=== PATIENT | male | born 1995 | race Caucasian/White ===

== ENCOUNTER 2017-08-06 23:38 | Emergency (ER) | payer MEDICAID ==
[~2017-08-06] VITALS: Ht 172.7 cm; Wt 65.8 kg
[~2017-08-06 23:38] MED LIST: IBUP-81 PO
[2017-08-06 23:41] VITALS: BP 140/67
[2017-08-07] MEDS ORDERED: TETRACAINE HCL/PF 0.5% OPTH 4 ML BTL ONE (00:06)
[2017-08-07] MEDS ORDERED: FLUORESCEIN OPTH STRIP 0.6 MG ONE (00:07)
[2017-08-07] MEDS: FLUORESCEIN OPTH STRIP 0.6 MG OP ONE (00:21)
[2017-08-07] MEDS: TETRACAINE HCL/PF 0.5% OPTH 4 ML BTL OP ONE (00:21)
[2017-08-07 00:29] VITALS: BP 140/67
== END 2017-08-07 00:29 | disposition home or self-care (01) ==
LOC: MED 23:38
DX: H10.9 Unspecified conjunctivitis (principal); Z79.899 Other long term (current) drug therapy
CPT/HCPCS: 99283